=== PATIENT | male | born 1945 | race Two or more races ===

== ENCOUNTER 2023-03-25 20:33 | Inpatient (IN) | payer MEDICARE, BC ==
[~2023-03-25] VITALS: Ht 175.3 cm; Wt 59.9 kg
[2023-03-25] MEDS ORDERED: IV NS 0.9% 1,000 ML BAG IV ONE (21:00)
[2023-03-25 21:36] LABS: BASOPHILS % (AUTO) 0.6 % (0.0-2.0); EOSINOPHILS % (AUTO) 0.2 % (0.0-6.0); HEMATOCRIT 30 % (39-51); HEMOGLOBIN 11.4 g/dL (13.5-17.5); LYMPHOCYTES % (AUTO) 30.1 % (20.0-44.0); MEAN CORPUSCULAR HEMOGLOBIN 40 PG (26.0-33.0); MEAN CORPUSCULAR VOLUME 106 fL (80-96); MONOCYTES # (AUTO) 0.3 K/uL (0.1-1.30); MONOCYTES % (AUTO) 10.1 % (2.0-12.0); NEUTROPHILS # (AUTO) 1.9 K/uL (1.8-8.9); PLATELET COUNT (AUTO) 231 K/uL (150-450); RED BLOOD CELL COUNT(AUTO) 2.84 MIL/uL (4.5-6.0); RED CELL DISTRIBUTION WIDTH 16.7 % (11.5-15.0); WHITE BLOOD COUNT (AUTO) 3.2 K/uL (4.3-11.0)
[2023-03-25 21:50] VITALS: BP 118/51; TEMP 98.9; O2SAT 97
[2023-03-25 21:54] LABS: APPEARANCE,URINE CLEAR (CLEAR); BILIRUBIN,URINE NEGATIVE (NEGATIVE); BLOOD, URINE NEGATIVE Ery/uL (NEGATIVE); COLOR,URINE YELLOW (YELLOW); KETONES,URINE TRACE mg/dL (NEGATIVE); LEUKOCYTE ESTERASE ,URINE NEGATIVE (NEGATIVE); NITRITE, URINE NEGATIVE (NEGATIVE); PROTEIN,URINE TRACE mg/dl (NEGATIVE); UGLUCOSE NEGATIVE (NEGATIVE)
[2023-03-25 22:00] LABS: ADD URINE CULTURE NO; BACTERIA,URINE None seen /HPF (None Seen); MUCUS,URINE Few /LPF (None Seen); RBC,URINE 0-2 /HPF (0-2); SQUAMOUS EPITHELIAL CELL,UR 0-2 /HPF (None Seen); WBC,URINE 0-2 /HPF (0-3)
[2023-03-25 22:05] LABS: CALCIUM, SERUM 8.8 mg/dL (8.5-10.1); CARBON DIOXIDE 22 mmol/L (21-32); CHLORIDE 106 mmol/L (98-107); GLUCOSE 99 mg/dL (74-106); POTASSIUM 3.7 mmol/L (3.5-5.1); SODIUM SERUM 140 mmol/L (136-145); UREA NITROGEN, BLOOD 14 mg/dL (7-18)
[2023-03-25 22:09] LABS: ANISOCYTOSIS 1+; BAND % (MANUAL) 3 % (0.0-5.0); LYMPHOCYTES % (MANUAL) 20 % (16-48); MONOCYTES % (MANUAL) 5 % (0-11.0); NEUTROPHILS % (MANUAL) 72 (42-76); PLATELET ESTIMATE ADEQUATE; ROULEAUX 2+
[2023-03-25 22:11] LABS: OVALOCYTES RARE
[2023-03-25 22:17] LABS: ALANINE AMINOTRANSFERASE 29 U/L (12-78); ALBUMIN 2.8 g/dL (3.4-5.0); ALKALINE PHOSPHATASE 64 U/L (46-116); ASPARTATE AMINOTRANSFERASE 42 U/L (15-37); BILIRUBIN,DIRECT 0.1 mg/dL (0.0-0.2); BILIRUBIN,TOTAL 0.2 mg/dL (0.2-1.0); LIPASE 218 U/L (73-393); NT-PRO BNP 436 pg/mL (0-125); TOTAL PROTEIN, SERUM 6.3 g/dL (6.4-8.2)
[2023-03-25 22:32] LABS: MEAN CORPUSCULAR HGB CONC 34 g/dl (31.0-36.0)
[2023-03-26] VITALS (7 sets, daily range): BP systolic 97–118; BP diastolic 51–71; TEMP 98.2–99; O2SAT 94–99
[2023-03-26] MEDS ORDERED: MAG HYDROX/AL HYDROX/SIMETH 30 ML UDC PO PRN
[2023-03-26] MEDS ORDERED: MAGNESIUM HYDROXIDE 30 ML UDC PO PRN
[2023-03-26] MEDS ORDERED: Z GUARD REMEDY 4 OZ OINT TP PRN
[2023-03-26] MEDS ORDERED: ACETAMINOPHEN 325 MG TABLET PO PRN
[2023-03-26] MEDS ORDERED: ONDANSETRON HCL/PF 4 MG/2 ML VIAL IVP PRN
[2023-03-26] MEDS ORDERED: ZOLPIDEM TARTRATE 5 MG TABLET PO PRN
[2023-03-26] MEDS: ENOXAPARIN SODIUM 40 MG/0.4 ML DISP.SYRIN SQ SCH ×2 (00:50→20:38)
[2023-03-26] MEDS: IV NS 0.9% 1,000 ML IV PRN ×2 (01:35→16:20)
[2023-03-26] MEDS ORDERED: MEGE400O4 PO (08:11)
[2023-03-26] MEDS ORDERED: ACET-2605 PO (08:11)
[2023-03-26] MEDS ORDERED: DIVA250T PO (08:11)
[2023-03-26] MEDS ORDERED: FOLI0.8T3 PO (08:11)
[2023-03-26] MEDS ORDERED: LACO100T2 PO (08:11)
[2023-03-26] MEDS ORDERED: AMLO10TA4 PO (08:11)
[2023-03-26] MEDS ORDERED: HYDR-4303 PO (08:11)
[2023-03-26] MEDS: PANTOPRAZOLE 40 MG TABLET.DR PO SCH (08:28)
[2023-03-26] MEDS: dexaMETHasone SOD PHOSPHATE 10 MG/ML VIAL IV SCH (08:28)
[2023-03-26 09:00] LABS: BASOPHILS % (AUTO) 0.5 % (0.0-2.0); EOSINOPHILS % (AUTO) 0.3 % (0.0-6.0); HEMATOCRIT 37 % (39-51); HEMOGLOBIN 12.1 g/dL (13.5-17.5); LYMPHOCYTES # (AUTO) 1.6 K/uL (0.8-4.8); LYMPHOCYTES % (AUTO) 41.6 % (20.0-44.0); MEAN CORPUSCULAR HEMOGLOBIN 30 PG (26.0-33.0); MEAN CORPUSCULAR HGB CONC 33 g/dl (31.0-36.0); MEAN CORPUSCULAR VOLUME 93 fL (80-96); MONOCYTES # (AUTO) 0.3 K/uL (0.1-1.30); NEUTROPHILS # (AUTO) 1.8 K/uL (1.8-8.9); NEUTROPHILS % (AUTO) 48.6 % (43.0-81.0); PLATELET COUNT (AUTO) 210 K/uL (150-450); RED BLOOD CELL COUNT(AUTO) 3.96 MIL/uL (4.5-6.0); RED CELL DISTRIBUTION WIDTH 16.2 % (11.5-15.0); WHITE BLOOD COUNT (AUTO) 3.7 K/uL (4.3-11.0)
[2023-03-26 09:17] LABS: CALCIUM, SERUM 8.2 mg/dL (8.5-10.1); CARBON DIOXIDE 24 mmol/L (21-32); CHLORIDE 107 mmol/L (98-107); CREATININE 0.8 mg/dL (0.6-1.3); GLUCOSE 86 mg/dL (74-106); MAGNESIUM 1.8 mg/dL (1.8-2.4); PHOSPHORUS 2.9 mg/dL (2.5-4.9); POTASSIUM 3.6 mmol/L (3.5-5.1); SODIUM SERUM 141 mmol/L (136-145); UREA NITROGEN, BLOOD 9 mg/dL (7-18)
[2023-03-26 09:27] LABS: THYROID STIMULATING HORMONE 4.374 uIU/mL (0.358-3.74)
[2023-03-26] MEDS ORDERED: LORAZEPAM INJ 2 MG/ML VIAL IV ONE (17:30)
[2023-03-27] VITALS: BP 120/74; TEMP 98.6; O2SAT 95
[2023-03-27 04:00] VITALS: BP 122/76; TEMP 98.1; O2SAT 96
[2023-03-27 07:41] LABS: BASOPHILS % (AUTO) 0.3 % (0.0-2.0); EOSINOPHILS % (AUTO) 0.1 % (0.0-6.0); HEMATOCRIT 34 % (39-51); HEMOGLOBIN 11.8 g/dL (13.5-17.5); LYMPHOCYTES # (AUTO) 1.3 K/uL (0.8-4.8); LYMPHOCYTES % (AUTO) 38.4 % (20.0-44.0); MEAN CORPUSCULAR HEMOGLOBIN 36 PG (26.0-33.0); MEAN CORPUSCULAR HGB CONC 35 g/dl (31.0-36.0); MEAN CORPUSCULAR VOLUME 102 fL (80-96); MONOCYTES # (AUTO) 0.3 K/uL (0.1-1.30); MONOCYTES % (AUTO) 9.2 % (2.0-12.0); NEUTROPHILS # (AUTO) 1.7 K/uL (1.8-8.9); PLATELET COUNT (AUTO) 227 K/uL (150-450); RED BLOOD CELL COUNT(AUTO) 3.31 MIL/uL (4.5-6.0); RED CELL DISTRIBUTION WIDTH 16.7 % (11.5-15.0); WHITE BLOOD COUNT (AUTO) 3.3 K/uL (4.3-11.0)
[2023-03-27 08:00] VITALS: BP 134/81; TEMP 98; O2SAT 96
[2023-03-27] MEDS: dexaMETHasone SOD PHOSPHATE 10 MG/ML VIAL IV SCH (08:30)
[2023-03-27] MEDS: PANTOPRAZOLE 40 MG TABLET.DR PO SCH (08:30)
[2023-03-27 08:38] LABS: CALCIUM, SERUM 8.3 mg/dL (8.5-10.1); CREATININE 0.7 mg/dL (0.6-1.3); MAGNESIUM 1.7 mg/dL (1.8-2.4); PHOSPHORUS 2.8 mg/dL (2.5-4.9); POTASSIUM 3.7 mmol/L (3.5-5.1)
[2023-03-27 09:07] LABS: LYMPHOCYTES % (MANUAL) 40 % (16-48); MONOCYTES % (MANUAL) 9 % (0-11.0); MYELOCYTES % 1 % (0-0); NEUTROPHILS % (MANUAL) 50 (42-76); PLATELET ESTIMATE ADEQUATE
[2023-03-27] MEDS ORDERED: MAGNESIUM OXIDE 400 MG TABLET PO ONE (10:00)
[2023-03-27] MEDS: IV NS 0.9% 1,000 ML IV PRN (11:41)
[2023-03-27 12:00] VITALS: BP 106/80; TEMP 98.1; O2SAT 97
[2023-03-27] MEDS ORDERED: HYDROCODONE/APAP 5/325MG TABLET PO PRN (12:30)
[2023-03-27] MEDS ORDERED: ACETAMINOPHEN ES 500 MG TABLET PO PRN (12:30)
[2023-03-27] MEDS ORDERED: OLANZAPINE 10 MG VIAL IM ONE (13:00)
[2023-03-27] MEDS: FOLIC ACID 1 MG TABLET PO SCH (13:10)
[2023-03-27] MEDS: DIVALPROEX SODIUM 250 MG TABLET.DR PO SCH ×2 (13:10→21:41)
[2023-03-27] MEDS: LACOSAMIDE ORAL SOLN 50 MG/5 ML UDC PO SCH ×2 (13:10→21:40)
[2023-03-27] MEDS: AMLODIPINE BESYLATE 10 MG TABLET PO SCH (13:11)
[2023-03-27 16:00] VITALS: BP 116/80; TEMP 98; O2SAT 97
[2023-03-27] MEDS: LORAZEPAM INJ 2 MG/ML VIAL IV PRN (19:49)
[2023-03-27 20:00] VITALS: BP 96/73; TEMP 98.1
[2023-03-27] MEDS: ENOXAPARIN SODIUM 40 MG/0.4 ML DISP.SYRIN SQ SCH (21:42)
[2023-03-28] VITALS: BP 117/84; TEMP 98.4; O2SAT 99
[2023-03-28 04:00] VITALS: BP 104/69; TEMP 98.5; O2SAT 100
[2023-03-28 06:54] LABS: BASOPHILS % (AUTO) 0.3 % (0.0-2.0); HEMATOCRIT 37 % (39-51); HEMOGLOBIN 13.4 g/dL (13.5-17.5); LYMPHOCYTES # (AUTO) 1.7 K/uL (0.8-4.8); MEAN CORPUSCULAR HEMOGLOBIN 36 PG (26.0-33.0); MEAN CORPUSCULAR HGB CONC 36 g/dl (31.0-36.0); MEAN CORPUSCULAR VOLUME 100 fL (80-96); MONOCYTES # (AUTO) 0.3 K/uL (0.1-1.30); MONOCYTES % (AUTO) 8.1 % (2.0-12.0); NEUTROPHILS # (AUTO) 1.9 K/uL (1.8-8.9); NEUTROPHILS % (AUTO) 48.6 % (43.0-81.0); PLATELET COUNT (AUTO) 288 K/uL (150-450); RED BLOOD CELL COUNT(AUTO) 3.68 MIL/uL (4.5-6.0); RED CELL DISTRIBUTION WIDTH 16.1 % (11.5-15.0)
[2023-03-28 07:15] LABS: ALANINE AMINOTRANSFERASE 28 U/L (12-78); ALBUMIN 3.2 g/dL (3.4-5.0); ALKALINE PHOSPHATASE 56 U/L (46-116); ASPARTATE AMINOTRANSFERASE 35 U/L (15-37); BILIRUBIN,TOTAL 0.3 mg/dL (0.2-1.0); CALCIUM, SERUM 9.3 mg/dL (8.5-10.1); CARBON DIOXIDE 23 mmol/L (21-32); CHLORIDE 103 mmol/L (98-107); CREATININE 0.8 mg/dL (0.6-1.3); GLUCOSE 81 mg/dL (74-106); POTASSIUM 3.9 mmol/L (3.5-5.1); SODIUM SERUM 138 mmol/L (136-145); TOTAL PROTEIN, SERUM 7.2 g/dL (6.4-8.2); UREA NITROGEN, BLOOD 11 mg/dL (7-18)
[2023-03-28 08:00] VITALS: BP 112/69; TEMP 97.9; O2SAT 100
[2023-03-28] MEDS: PANTOPRAZOLE 40 MG TABLET.DR PO SCH (08:08)
[2023-03-28] MEDS: ENSURE ENLIVE 237 ML LIQUID (VANILLA) PO SCH ×4 (08:08→16:17)
[2023-03-28] MEDS: AMLODIPINE BESYLATE 10 MG TABLET PO SCH (09:00)
[2023-03-28] MEDS ORDERED: ENSURE ENLIVE 237 ML LIQUID (VANILLA) PO SCH (09:00)
[2023-03-28] MEDS: FOLIC ACID 1 MG TABLET PO SCH (09:07)
[2023-03-28] MEDS: dexaMETHasone SOD PHOSPHATE 10 MG/ML VIAL IV SCH (09:08)
[2023-03-28] MEDS: DIVALPROEX SODIUM 250 MG TABLET.DR PO SCH ×2 (09:08→21:10)
[2023-03-28] MEDS: LACOSAMIDE ORAL SOLN 50 MG/5 ML UDC PO SCH ×2 (09:08→21:10)
[2023-03-28 12:00] VITALS: BP 100/70; TEMP 97.8; O2SAT 100
[2023-03-28] MEDS: LORAZEPAM INJ 2 MG/ML VIAL IV PRN (14:27)
[2023-03-28 16:00] VITALS: BP 100/63; TEMP 98.2; O2SAT 100
[2023-03-28 20:00] VITALS: BP 120/81; TEMP 98.2; O2SAT 95
[2023-03-28] MEDS: OLANZAPINE 2.5 MG TABLET PO PRN (21:10)
[2023-03-28] MEDS: ENOXAPARIN SODIUM 40 MG/0.4 ML DISP.SYRIN SQ SCH (21:11)
[2023-03-29 04:00] VITALS: BP 116/85; TEMP 98.8; O2SAT 98
[2023-03-29] MEDS: PANTOPRAZOLE 40 MG TABLET.DR PO SCH (08:17)
[2023-03-29] MEDS: ENSURE ENLIVE 237 ML LIQUID (VANILLA) PO SCH ×3 (09:28→17:28)
[2023-03-29] MEDS: FOLIC ACID 1 MG TABLET PO SCH (09:33)
[2023-03-29] MEDS: DIVALPROEX SODIUM 250 MG TABLET.DR PO SCH ×2 (09:33→21:02)
[2023-03-29] MEDS: LACOSAMIDE ORAL SOLN 50 MG/5 ML UDC PO SCH ×2 (09:33→21:08)
[2023-03-29] MEDS: AMLODIPINE BESYLATE 10 MG TABLET PO SCH (09:36)
[2023-03-29 12:00] VITALS: BP 139/62; TEMP 98.1; O2SAT 96
[2023-03-29 20:00] VITALS: BP 139/62; TEMP 98.1; O2SAT 96
[2023-03-29] MEDS: ENOXAPARIN SODIUM 40 MG/0.4 ML DISP.SYRIN SQ SCH (21:10)
[2023-03-30 04:00] VITALS: BP 115/79; TEMP 97.9; O2SAT 99
[2023-03-30] MEDS: PANTOPRAZOLE 40 MG TABLET.DR PO SCH ×2 (07:54→08:46)
[2023-03-30] MEDS: FOLIC ACID 1 MG TABLET PO SCH (08:46)
[2023-03-30] MEDS: DIVALPROEX SODIUM 250 MG TABLET.DR PO SCH (08:46)
[2023-03-30 08:47] VITALS: BP 90/72
[2023-03-30] MEDS: AMLODIPINE BESYLATE 10 MG TABLET PO SCH (08:47)
[2023-03-30] MEDS: LACOSAMIDE ORAL SOLN 50 MG/5 ML UDC PO SCH (08:50)
[2023-03-30] MEDS: ENSURE ENLIVE 237 ML LIQUID (VANILLA) PO SCH ×2 (09:00→13:00)
[2023-03-30] MEDS ORDERED: OLAN2.5T3 PO (11:42)
[2023-03-30] MEDS: OLANZAPINE 2.5 MG TABLET PO PRN (13:57)
== END 2023-03-30 15:40 | DRG 177 ==
LOC: ER 20:35 → TELE1 03-26 00:20 → MEDSG1 03-28 15:01
PROVIDERS: ADMIT Student in an Organized Health Care Education/Training Program; ATTEND Nurse Practitioner Acute Care
PROC: 05H633Z Insertion of Infusion Device into Left Subclavian Vein, Percutaneous Approach (ICD-10-PCS; principal; 2023-03-27)
PROC: B547ZZA Ultrasonography of Left Subclavian Vein, Guidance (ICD-10-PCS; 2023-03-27)
DX: U07.1 COVID-19 (principal); G93.41 Metabolic encephalopathy; E44.0 Moderate protein-calorie malnutrition; Z68.1 Body mass index [BMI] 19.9 or less, adult; D64.9 Anemia, unspecified; E86.1 Hypovolemia; I10 Essential (primary) hypertension; E88.89 Other specified metabolic disorders; I95.9 Hypotension, unspecified; R53.1 Weakness; R62.7 Adult failure to thrive; G30.9 Alzheimer's disease, unspecified; F02.80 Dementia in other diseases classified elsewhere, unspecified severity, without behavioral disturbance, psychotic disturbance, mood disturbance, and anxiety; S41.112A Laceration without foreign body of left upper arm, initial encounter; S41.111A Laceration without foreign body of right upper arm, initial encounter; X58.XXXA Exposure to other specified factors, initial encounter; Y93.9 Activity, unspecified; Y92.129 Unspecified place in nursing home as the place of occurrence of the external cause; R56.9 Unspecified convulsions
CPT/HCPCS: 36410; 36415; 70450-TC; 71045-TC; 80048-TC; 80053-TC; 80076-TC; 81001; 82962-TC; 83690-TC; 83735-TC; 83880; 84100-TC; 84443-TC; 84484-TC; 85025-TC; 87081-TC; 87086-TC; 97110-TC; 97530-TC; A4223; C9803; G0378; J1100; J1650; J2060; J3490; J7030

== ENCOUNTER 2023-05-28 10:31 | Emergency (ER) | payer MEDICARE, BC ==
[~2023-05-28] VITALS: Ht 175.3 cm; Wt 73.0 kg
[~2023-05-28 10:31] MED LIST: ACET-2605 PO; AMLO10TA4 PO; DIVA250T PO; FOLI0.8T3 PO; HYDR-4303 PO; LACO100T2 PO; MEGE400O4 PO; OLAN2.5T3 PO
[2023-05-28] MEDS ORDERED: OLANZAPINE 10 MG VIAL IM ONE ×2 (10:49→11:00)
[2023-05-28 11:17] LABS: CALCIUM, SERUM 8.6 mg/dL (8.5-10.1); CARBON DIOXIDE 27 mmol/L (21-32); CHLORIDE 102 mmol/L (98-107); CREATININE 0.8 mg/dL (0.6-1.3); GLUCOSE 73 mg/dL (74-106); SODIUM SERUM 136 mmol/L (136-145); UREA NITROGEN, BLOOD 12 mg/dL (7-18)
[2023-05-28 11:26] LABS: BASOPHILS % (AUTO) 0.4 % (0.0-2.0); HEMATOCRIT 30 % (39-51); HEMOGLOBIN 12.9 g/dL (13.5-17.5); LYMPHOCYTES # (AUTO) 1.4 K/uL (0.8-4.8); LYMPHOCYTES % (AUTO) 35.9 % (20.0-44.0); MEAN CORPUSCULAR HEMOGLOBIN 49 PG (26.0-33.0); MEAN CORPUSCULAR HGB CONC 43 g/dl (31.0-36.0); MEAN CORPUSCULAR VOLUME 113 fL (80-96); MONOCYTES # (AUTO) 0.4 K/uL (0.1-1.30); MONOCYTES % (AUTO) 9.1 % (2.0-12.0); NEUTROPHILS # (AUTO) 2.1 K/uL (1.8-8.9); NEUTROPHILS % (AUTO) 53.6 % (43.0-81.0); PLATELET COUNT (AUTO) 230 K/uL (150-450); RED BLOOD CELL COUNT(AUTO) 2.67 MIL/uL (4.5-6.0); RED CELL DISTRIBUTION WIDTH 18.1 % (11.5-15.0)
[2023-05-28 11:47] LABS: EOSINOPHILS % (MANUAL) 1 % (0-4); LYMPHOCYTES % (MANUAL) 41 % (16-48); MONOCYTES % (MANUAL) 6 % (0-11.0); NEUTROPHILS % (MANUAL) 52 (42-76); PLATELET ESTIMATE ADEQUATE
[2023-05-28 12:19] VITALS: BP 113/90; TEMP 97.8; O2SAT 96
== END 2023-05-28 13:40 | disposition home or self-care (01) ==
LOC: ER 10:59
DX: S01.81XA Laceration without foreign body of other part of head, initial encounter (principal); I10 Essential (primary) hypertension; W18.30XA Fall on same level, unspecified, initial encounter; Y93.89 Activity, other specified; Y92.89 Other specified places as the place of occurrence of the external cause; Y99.8 Other external cause status
CPT/HCPCS: 99285; 70450; 12011; 85025; 80048; 36415; 84484; 93005; 96372; 85007; J3490